=== PATIENT | female | born 1960 | race Caucasian/White ===

== ENCOUNTER 2025-03-05 21:16 | Emergency (ER) | payer MEDICARE, SELFPAY ==
[2025-03-05 21:24] VITALS: BP 146/77
[2025-03-05 23:10] VITALS: BMI 25.1
[2025-03-05 23:11] VITALS: BP 136/74
--- NOTE | 2025-03-05 23:52 | ED.GENMED ---
History of Present Illness
General
Chief Complaint: Throat Problem
Time Seen by Provider: 03/05/25 23:52
History of Present Illness
History of Present Illness:
FOCUSED PAST MEDICAL HISTORY
- Asthma, GERD, depression
REVIEW OF OLD RECORDS
- No old records available for review in [facility]
Note:
CHIEF COMPLAINT(S)
Throat pain after ingesting suspected object.
HISTORY OF PRESENT ILLNESS
The patient is a 64-year-old female with no known drug allergies, who presents with throat pain after eating at a picnic around 5 PM. The pain began abruptly and is localized to the upper throat, described as feeling like she swallowed a wire. She
first noted the sensation while eating a hot dog, macaroni salad, and crackers. The patient attended an urgent care facility earlier where she was prescribed prednisone but received no throat cultures or imaging. The pain is exacerbated by
swallowing. She denies any sensation of obstruction or pain radiating to the chest, and there are no signs of aspiration or infection reported. The patient is able to clear her secretions but experiences pain upon swallowing. No airway compromise
was noted in the examination. 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
SOCIAL DETERMINANTS AFFECTING HEALTH
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
PLAN
A computed tomography (CT) scan with contrast was planned to evaluate the presence of any obstruction or foreign body in the throat.
DIFFERENTIAL DIAGNOSIS
- Esophageal foreign body
- Esophageal abrasion or irritation
- Esophagitis
- Pharyngeal foreign body
- Pharyngitis
- Gastroesophageal reflux disease (GERD)
- Esophageal stricture
- Laryngeal trauma or foreign body
- Upper respiratory tract infection
- Esophageal spasm
SUMMARY OF ENCOUNTER
The patient presented to the emergency department with throat pain after suspecting ingestion of a foreign object while eating. An urgent care visit earlier in the day ruled out immediate airway danger. In the emergency setting, CT imaging with
contrast was chosen over an X-ray for detailed examination. The CT results are pending. Nursing notes reviewed and vital signs reviewed.
DIAGNOSIS
Odynophagia
RADIOLOGY
- CT neck obtained which shows no acute abnormality
LABS
- CBC unremarkable, chemistries unremarkable
UPDATE
-SUMMARY OF ENCOUNTER
The patient, a 64-year-old female, presented to the emergency department with throat pain after the suspected ingestion of a foreign object while eating. During the emergency department visit, a CT scan with contrast was performed to search for any
obstruction or foreign body. The physician conducted an independent review of the CT scan and did not note any obvious foreign body like a large piece of metal. The patient received lidocaine, which provided relief, although the pain seemed
positional. Blood work was completed and showed no abnormalities.
PLAN
The plan involved awaiting the official radiology report of the CT scan to confirm the physicians findings and to determine the next steps regarding patient management. Depending on the radiology report, the patient might be discharged if no serious
findings are noted.
INDEPENDENT REVIEW OF LABS AND INTERPRETATION OF TESTS
My independent review of the patients blood work indicates no abnormalities.
My independent interpretation of the CT scan did not reveal any obvious foreign body such as a 'big chunk of metal.'
MEDICATION RECONCILIATION
Lidocaine was administered for pain relief, which soothed the throat and provided significant numbing.
MEDICAL DECISION MAKING
- Number and Complexity of Problems Addressed:
Chronic conditions affecting care were not specifically mentioned. Differential diagnoses considered include esophageal foreign body, esophageal abrasion or irritation, esophagitis, pharyngeal foreign body, pharyngitis, gastroesophageal reflux
disease (GERD), esophageal stricture, laryngeal trauma or foreign body, upper respiratory tract infection, and esophageal spasm.
- Data:
Category 1
The patients blood work was reviewed and indicated no abnormalities.
Independent interpretation of the CT scan was performed with findings suggesting no obvious foreign body.
Category 3
Management was discussed with the radiologist to await the official reading and interpretation of the CT scan to finalize patient management decisions.
- Risk:
Consideration of Admission/Observation: Escalation of care, including admission/observation, was considered given the complexity and risk of the patients presenting complaint. However, ultimately, I feel the patient is safe for outpatient management
with close follow-up. Reasoning: Work-up was reassuring, does not reveal any acute life/organ threatening processes, patients symptoms were well controlled upon reevaluation, reexamination is reassuring, vitals are stable, patient agreeable with
discharge, reliable for follow-up.
DIAGNOSIS
Suspected pharyngeal irritation/odynophagia
Phy Exam
Physical Exam
Physical Exam:
See HPI
Course
Orders/Labs/Results
Orders:
Orders
03/06/25 00:13
Mag Hydrox/Al Hydrox/Simeth [Maalox] 30 ml PO NOW STA
Viscous Lidocaine 2% [Xylocaine Viscous Cup] 15 ml PO NOW STA
03/06/25 00:14
CT Neck With Iv Contrast Urgent
Comment:
Reason For Exam: severe R pain w/ swallowing
03/06/25 00:25
Basic Metabolic Panel Urgent
Complete Blood Count/With Diff Urgent
Abnormal Lab Results
03/06/25
00:25
MCH 31.9 H pg
(27.0-31.0)
Absolute Lymphs (auto) 0.5 L 10^3/uL
(1.2-3.4)
Neutrophils % 88.6 H %
(42.2-75.2)
Lymphocytes % 9.4 L %
(20.5-51.1)
Monocytes % 1.0 L %
(1.7-9.3)
BUN 20 H mg/dl
(7-17)
Glucose 149 H mg/dl
(70-99)
03/06/25 00:25
03/06/25 00:25
Vital Signs
Initial and Last Documented VS:
Initial Vital Signs
Temp Pulse Resp BP Pulse Ox
36.8 C 63 16 146/77 98
03/05/25 21:24 03/05/25 21:24 03/05/25 21:24 03/05/25 21:24 03/05/25 21:24
Last Documented Vital Signs
Temp Pulse Resp BP Pulse Ox
36.8 C 56 18 146/79 98
03/05/25 21:24 03/06/25 00:18 03/06/25 00:18 03/06/25 00:18 03/06/25 00:18
*Pulse Oximetry
SaO2: 97
Oxygen Mode of Delivery: Room air
Patient hypoxic: no
*Critical Care Note
Total Time (30-74mins, 75-104mins- exclusive of procedures): Not Applicable
ED Attending Note
-
Portions of this chart may have been created with voice recognition software.� Occasional wrong word or��sound alike� substitutions may have occurred due to the inherent limitations of voice recognition software.
Discharge Plan
Departure
Instructions: BLOOD PRESSURE
Prescriptions:
No Action
fluoxetine 40 mg Capsule
40 mg PO DAILY
loratadine [Claritin] 10 mg Tablet
10 mg PO DAILY
dexmethylphenidate [Focalin XR] 10 mg Capsule,Er Biphasic 50-50
10 mg PO DAILY
Referrals:
Africa Carrera MD [Family Provider, Family Practice]
Activity Restrictions/Additional Instructions:
The cause of your symptoms is unclear. We gave you viscous lidocaine to help numb the affected area. Basic blood work is normal. CAT scan of your neck with IV contrast was obtained
Interventions
Interventions:
*Risk Screen - Suicide Last Done: 03/05/25 21:24
*General Assessment Last Done: 03/05/25 23:14
*Neglect/Abuse Screening Last Done: 03/05/25 21:24
*ED- Fall Risk Assessment Last Done: 03/05/25 21:24
*ED COVID-19 Vaccine History Last Done: 03/05/25 23:13
ED-EENT Assessment Last Done: 03/06/25 00:00
ED- Pulmonary Assessment Last Done: 03/06/25 00:00
Discharge Date and Time
Print Language: [place]
[2025-03-06 00:18] VITALS: BP 146/79
[2025-03-06] MEDS: XYLOCAINE VISCOUS CUP 15 ML PO (00:20)
[2025-03-06] MEDS: MAALOX 30 ML PO (00:20)
[2025-03-06 00:47] LABS: Hematocrit 39.4 % (37.0-47.0); Hemoglobin 13.9 g/dL (12.0-16.0); Mean Corp Hgb Conc. 35.3 g/dL (33.0-37.0); Mean Corpuscular Volume 90.4 fL (81.0-99.0); Nucleated Red Blood Cells % 0 %; Platelet Count 231 10^3/uL (130-400); Red Cell Dist. Width 12.1 % (11.5-14.5)
[2025-03-06 00:55] LABS: Blood Urea Nitrogen 20 mg/dl (7-17); Calcium 9.6 mg/dl (8.4-10.2); Carbon Dioxide 25 mmol/L (22-30); Chloride 106 mmol/L (98-107); Estimated Creatinine Clearance 80 ml/min; Glucose 149 mg/dl (70-99); Potassium 4.5 mmol/L (3.5-5.1); Sodium 138 mmol/L (135-145); eGFR > 60.00
[2025-03-06 03:00] VITALS: BP 135/78
== END 2025-03-06 03:07 | disposition home or self-care (01) ==
LOC: EMR 21:16
PROVIDERS: EMERGENCY PHYSICIAN Emergency Medicine; FAMILY PHYSICIAN Family Medicine
DX: R07.0 Pain in throat (principal); R13.10 Dysphagia, unspecified; J39.2 Other diseases of pharynx; J45.909 Unspecified asthma, uncomplicated; F32.A Depression, unspecified; K21.9 Gastro-esophageal reflux disease without esophagitis
CPT/HCPCS: 99284; 70491; 80048; 85025; Q9967

== ENCOUNTER 2025-03-17 16:04 | Emergency (ER) | payer MEDICARE, SELFPAY ==
[2025-03-17 16:06] VITALS: BP 139/72
--- NOTE | 2025-03-17 17:27 | ED.GENMED ---
History of Present Illness
General
Chief Complaint: DVT/Possible Blood Clot
Source: patient
Exam Limitations: none
Time Seen by Provider: 03/17/25 17:16
History of Present Illness
History of Present Illness:
64-year-old female otherwise quite healthy presents complaining of redness and swelling to the right foot worsening over the past several days. Initially seen by the family doctor yesterday tested for gout and Lyme both of which were negative. She
was started on doxycycline of which she has taken 3 doses for and notes no significant improvement. She was sent in by the family doctor to evaluate for possible DVT. No chest pain or shortness of breath. No fevers or chills.
Phy Exam
Physical Exam
Physical Exam:
General: Well-appearing female no acute respiratory distress
HEENT: Normal cephalic atraumatic
Skin: Erythema and swelling to the right foot with warmth to the touch. This is slightly tender. No fluctuance or lymphangitic streaking
Vascular: 2+ DP pulse right foot with brisk capillary refill to the toes
Course
Orders/Labs/Results
Orders:
Orders
03/17/25 16:09
US Periph Venous LOWER Ext RT Urgent
Comment:
Reason For Exam: Inflammation with swelling
03/17/25 17:25
CR Foot - Right Min 3 Views Urgent
Comment:
Reason For Exam: pain/swelling
Vital Signs
Initial and Last Documented VS:
Initial Vital Signs
Temp Pulse Resp BP Pulse Ox
98.7 F 65 16 139/72 96
03/17/25 16:06 03/17/25 16:06 03/17/25 16:06 03/17/25 16:06 03/17/25 16:06
Last Documented Vital Signs
Temp Pulse Resp BP Pulse Ox
98.7 F 56 16 133/80 98
03/17/25 16:06 03/17/25 18:52 03/17/25 18:52 03/17/25 18:52 03/17/25 18:52
MDM/Problems Addressed
Differential Diagnosis Includes:
Erythema and swelling right foot. Sent in by family doctor to evaluate for DVT. Ultrasound pending. Will also check x-ray to evaluate for under 1 occult fracture.
*Pulse Oximetry
SaO2: 96
Oxygen Mode of Delivery: Room air
Patient hypoxic: no
*Critical Care Note
Total Time (30-74mins, 75-104mins- exclusive of procedures): Not Applicable
Update Note
Update Note:
Ultrasound demonstrates clot in the superficial vein of the medial calf. No vein thrombosis noted. X-ray right foot negative. Reassured patient recommended warm compresses and NSAIDs. She started doxycycline yesterday I advise she continue this
for a week in the event there is some underlying cellulitis. No indication for admission. Stable for discharge
ED Attending Note
-
Portions of this chart may have been created with voice recognition software.� Occasional wrong word or��sound alike� substitutions may have occurred due to the inherent limitations of voice recognition software.
Discharge Plan
Departure
Patient Disposition: Home (Routine Discharge)
Date of Disposition: 03/17/25
Time of Disposition: 19:39
Patient with high blood pressure during this ER visit?: No
Discharge Problem:
Superficial thrombophlebitis of leg
Prescriptions:
No Action
fluoxetine 40 mg Capsule
40 mg PO DAILY
loratadine [Claritin] 10 mg Tablet
10 mg PO DAILY
dexmethylphenidate [Focalin XR] 10 mg Capsule,Er Biphasic 50-50
10 mg PO DAILY
Referrals:
PRIVATE,PHYSICIAN [Family Provider, Internal Medicine]
Activity Restrictions/Additional Instructions:
Use warm compresses to the leg. Elevate for swelling. Use ibuprofen for pain. Continue doxycycline.
Discharge Date and Time
Print Language: GERMAN
[2025-03-17 18:52] VITALS: BP 133/80
== END 2025-03-17 20:21 | disposition home or self-care (01) ==
LOC: EMR 16:04
PROVIDERS: EMERGENCY PHYSICIAN Emergency Medicine; FAMILY PHYSICIAN Family Medicine
DX: I80.01 Phlebitis and thrombophlebitis of superficial vessels of right lower extremity (principal)
CPT/HCPCS: 99284; 73630; 93971